=== PATIENT | male | born 1950 | race Caucasian/White ===

== ENCOUNTER 2020-09-24 14:56 | Emergency (ER) | payer MEDICARE, OTHER ==
--- NOTE | 2020-09-24 15:23 | ED Physician Documentation ---
PD HPI ABD PAIN - Stated complaint Stated Complaint: MALE - Chief complaint Chief Complaint: Abd Pain - History obtained from History obtained from: Patient - Additional information Additional information: He had a tough late night last night with a lot of urinary frequency and today could not urinate at all. He does have a history of large prostate with PSAs in the 5-6 range. Not on Flomax currently. Review of Systems Constitutional: denies: Fever, Chills GI: reports: Abdominal Pain. denies: Nausea, Vomiting : reports: Frequency. denies: Dysuria PD PAST MEDICAL HISTORY - Present Medications Home Medications: Ambulatory Orders Medication Instructions Recorded Confirmed Ciprofloxacin HCl [Cipro] 500 mg PO BID #20 tablet 09/24/20 Phenazopyridine HCl [Pyridium] 200 mg PO TID PRN #6 tablet 09/24/20 Rosuvastatin Calcium [Crestor] 40 mg PO DAILY 09/24/20 09/24/20 Tamsulosin [Flomax] 0.4 mg PO DAILY #14 capsule 09/24/20 Venlafaxine HCl [Effexor Xr] 75 mg PO DAILY 09/24/20 09/24/20 amLODIPine [Norvasc] 5 mg PO DAILY 09/24/20 09/24/20 buPROPion [Wellbutrin Sr] 300 mg PO DAILY 09/24/20 09/24/20 - Allergies Allergies/Adverse Reactions: Allergies Allergy/AdvReac Type Severity Reaction Status Date / Time No Known Drug Allergies Allergy Verified 09/24/20 15:02 PD ED PE NORMAL - Vitals Vital signs reviewed: Yes - General General: Alert and oriented X 3, No acute distress - Abdomen Abdomen: Normal bowel sounds, Soft, Non tender - Neuro Neuro: Alert and oriented X 3, Normal speech - Psych Psych: Normal mood, Normal affect Results - Vitals Vitals: Vital Signs - 24 hr 09/24/20 09/24/20 15:02 15:32 Temperature 97.7 C H Heart Rate 84 68 Respiratory 18 18 Rate Blood Pressure 109/73 136/76 H O2 Saturation 100 100 Oxygen O2 Source Room air - Labs Labs: Laboratory Tests 09/24/20 09/24/20 09/24/20 15:22 15:22 15:28 WBC 10.0 RBC 4.62 L Hgb 14.4 Hct 42.3 MCV 91.6 MCH 31.2 H MCHC 34.0 RDW 13.1 Plt Count 210 MPV 8.4 Neut # (Auto) 8.5 H Lymph # (Auto) 0.8 L [place] # (Auto) 0.6 Eos # (Auto) 0.0 Baso # (Auto) 0.0 Absolute Nucleated RBC 0.00 Nucleated RBC % 0.0 Sodium 134 L Potassium 3.8 Chloride 101 Carbon Dioxide 24 Anion Gap 9.0 BUN 24 H Creatinine 1.0 Estimated GFR (MDRD) 75 L Glucose 103 H Calcium 8.8 Total Bilirubin 2.0 H AST 20 ALT 18 Alkaline Phosphatase 74 Total Protein 7.2 Albumin 4.2 Globulin 3.0 Albumin/Globulin Ratio 1.4 Lipase 27 Urine Color DARK YELLOW Urine Clarity CLOUDY Urine pH 6.0 Ur Specific [place] 1.025 Urine Protein 30 H Urine Glucose (UA) NEGATIVE Urine Ketones TRACE Urine Occult Blood MODERATE H Urine Nitrite POSITIVE H Urine Bilirubin NEGATIVE Urine Urobilinogen 1 (NORMAL) Ur Leukocyte Esterase MODERATE H Urine RBC TNTC H Urine WBC >25 H Ur Squamous Epith Cells NONE SEEN Urine Bacteria Many H Ur Microscopic Review INDICATED Urine Culture Comments INDICATED PD MEDICAL DECISION MAKING - ED course ED course: 69-year-old gentleman presents with acute bladder spasms, sensation of retention. He has a history of a large prostate and therefore urinary retention was presumed and a Wolff was expeditiously placed, but the output was not that high, maybe only about 100 mL. Bedside ultrasound at that time showed an empty bladder with the Wolff in place, he does have evidence of a UTI which was probably because of his symptoms in the first place which we are treating with Pyridium and Cipro. He has follow-up scheduled with a urologist and it seems reasonable to put him on Flomax in the meantime as well. Departure - Departure Disposition: 01 Home, Self Care Clinical Impression: Cystitis Condition: Good Record reviewed to determine appropriate education?: Yes Instructions: ED UTI Cystitis Male Prescriptions: Ciprofloxacin HCl [Cipro] 500 mg PO BID #20 tablet Tamsulosin [Flomax] 0.4 mg PO DAILY #14 capsule Phenazopyridine HCl [Pyridium] 200 mg PO TID PRN #6 tablet PRN Reason: dysuria Comments: You were seen today for symptoms that on the face of it could have been from urinary retention, but the Wolff catheter did not drain much and you do have evidence of UTI. We are starting you on antibiotics for this, also the Pyridium which should help with the bladder spasms and Flomax which should help with your prostate. Return as needed. We will culture the urine and if a change is necessary we will call you in a few days for new antibiotics. Follow-up with urologist as scheduled.
[2020-09-24 15:36] LABS: BASOPHILS % (AUTO) 0.2 %; EOSINOPHILS % (AUTO) 0.3 %; HGB - HEMOGLOBIN 14.4 g/dL (14.0-18.0); LYMPHOCYTES # (AUTO) 0.8 10^3/uL (1.5-3.5); LYMPHOCYTES % (AUTO) 8.2 %; MEAN CORPUSCULAR HEMOGLOBIN 31.2 pg (27.0-31.0); MEAN CORPUSCULAR VOLUME 91.6 fL (80.0-94.0); MEAN PLATELET VOLUME 8.4 fL (7.4-11.4); MONOCYTES # (AUTO) 0.6 10^3/uL (0.0-1.0); MONOCYTES % (AUTO) 6.1 %; NEUTROPHILS # (AUTO) 8.5 10^3/uL (1.5-6.6); NEUTROPHILS % (AUTO) 84.9 %; PLT - PLATELET COUNT 210 10^3/uL (130-450); RED BLOOD COUNT 4.62 10^6/uL (4.70-6.10); RED CELL DISTRIBUTION WIDTH 13.1 % (12.0-15.0)
[2020-09-24 15:41] LABS: BILIRUBIN,URINE NEGATIVE (NEGATIVE); GLUCOSE, URINE (UA) NEGATIVE (NEGATIVE); KETONES,URINE (UA) TRACE mg/dL (NEGATIVE); LEUKOCYTE ESTERASE, URINE MODERATE (NEGATIVE); NITRITE,URINE POSITIVE (NEGATIVE); OCCULT BLOOD,URINE MODERATE (NEGATIVE); PROTEIN,URINE 30 mg/dL (NEGATIVE); UROBILINOGEN,URINE 1 (NORMAL) E.U./dL (NORMAL)
[2020-09-24 15:44] LABS: CLARITY,URINE CLOUDY (CLEAR)
[2020-09-24 15:52] LABS: ALBUMIN 4.2 g/dL (3.2-5.5); ALBUMIN/GLOBULIN RATIO 1.4 (1.0-2.2); CALCIUM 8.8 mg/dL (8.5-10.3); TOTAL PROTEIN 7.2 g/dL (6.7-8.2)
[2020-09-24 15:54] LABS: RBC,URINE TNTC /HPF (0-5); SQUAMOUS EPITHELIAL CELL,UR NONE SEEN (<= Few)
[2020-09-24 15:55] LABS: BACTERIA,URINE Many /HPF (None Seen)
[2020-09-24] MEDS ORDERED: CIPROFLOXACIN 250 MG TABLET PO STA (16:02)
[2020-09-24] MEDS ORDERED: PHENAZOPYRIDINE 100 MG TABLET PO STA (16:02)
[2020-09-24 16:10] VITALS: BP 138/73
== END 2020-09-24 16:22 | disposition home or self-care (01) ==
LOC: ED 14:56
DX: N30.90 Cystitis, unspecified without hematuria (principal)
CPT/HCPCS: 36415; 80053; 81001; 83690; 85025; 87077; 87086; 87181; 99283; A9270; 81003

== ENCOUNTER 2021-02-01 12:12 | Outpatient (CLI) | payer MEDICARE, OTHER | END 2021-02-01 12:13 | disposition home or self-care (01) | LOC: DI.N 12:12 | PROVIDERS: ATTEND Family Medicine | DX: Z53.9 Procedure and treatment not carried out, unspecified reason (principal) ==

== ENCOUNTER 2021-02-01 12:22 | Outpatient (CLI) | payer MEDICARE, OTHER ==
--- NOTE | 2021-02-01 16:00 | XRAY Report ---
PROCEDURE: Lumbar Spine 2 View INDICATIONS: CHRONIC LOW BACK PX TECHNIQUE: 2 views of the lumbar spine were acquired. COMPARISON: None. FINDINGS: Bones: 5 [id number] vertebrae are present. There is trace retrolisthesis of L2 on L3, L3 on L4 , L4 on L5 and L5 on S1. Moderate disc space narrowing is present L4-5, L5-S1 as well as severe at L2 -3. Severe foraminal narrowing is noted at L5-S1, mild to moderate throughout the remainder of the rome mbar spine. There is mild wedge appearance of the L4 vertebral body of indeterminate age. No suspicio us bony lesions. Soft tissues: Overlying bowel gas pattern is normal. No suspicious soft tissue calcifications. IMPRESSION: Degenerative changes most notable at L5-S1. As clinically indicated, MRI may be obtained for additional evaluation. Reviewed by: Rubi Cameron MD on 02/01/2021 3:59 PM PDT Approved by: Rubi Cameron MD on 02/01/2021 3:59 PM PDT Station ID: [id number]
== END 2021-02-01 12:23 | disposition home or self-care (01) ==
LOC: DI.N 12:22
PROVIDERS: ATTEND Physician Assistant
DX: M54.5 Low back pain (principal); M47.817 Spondylosis without myelopathy or radiculopathy, lumbosacral region

== ENCOUNTER 2021-02-16 11:38 | Outpatient (CLI) | payer MEDICARE, OTHER ==
--- NOTE | 2021-02-16 12:45 | XRAY Report ---
PROCEDURE: SI Joints INDICATIONS: LOW BACK PAIN TECHNIQUE: 3 views of the sacroiliac joints were acquired. COMPARISON: None. FINDINGS: Bones: No bony erosions or ankylosis. No suspicious bony lesions. No fractures. Soft tissues: Overlying bowel gas pattern is normal. No suspicious soft tissue densities. IMPRESSION: No bony erosion or ankylosis is seen in bilateral sacroiliac joints. No fracture or dislocation. Reviewed by: Acosta Bone MD on 02/16/2021 11:44 AM DILCIA Approved by: Acosta Bone MD on 02/16/2021 11:44 AM DILCIA Station ID: [id number]
--- NOTE | 2021-02-16 13:25 | CT Report ---
PROCEDURE: Low Dose Lung Cancer Screen INDICATIONS: LUNG CA SCREENING, HX OF SMOKING TECHNIQUE: Noncontrast low-dose 5 mm thick sections acquired from the pulmonary apices to the posterior costophr enic angles. 7 mm thick coronal and sagittal MIP reformats were then acquired. For radiation dose r eduction, the following was used: automated exposure control, adjustment of mA and/or kV according t o patient size. COMPARISON: None. FINDINGS: Image quality: Excellent. Lungs and pleura: Moderate to severe centrilobular emphysema. 2 mm pulmonary nodule, right apex, gerardo ge 51/4. Pleural-based pulmonary nodule, anterior lateral right upper lobe, 0.6 x 1.0 cm, image 81/4. 3 mm pleural-based pulmonary nodule, right upper lobe, image 129/4. 3 mm pulmonary nodule, left lowe r lobe, image 134/4. 3 mm pulmonary nodule, left upper lobe, image 148/4. Mediastinum: Heart size is normal. No pericardial effusion. Moderately advanced coronary artery roseline cifications. No mediastinal adenopathy by size criteria. Thoracic aorta and central pulmonary arteri es are normal in size. Esophagus is normal in caliber. No hiatal hernia. Bones and chest wall: No suspicious bony lesions. No vertebral body compression fractures. No axil anum or supraclavicular adenopathy by size criteria. The thyroid is normal in size. Abdomen: Dense aortic calcifications. Visualized upper abdomen solid organs and bowel loops appear n ormal in the absence of contrast. IMPRESSION: 1. LungRads Category 3: Probably benign findings-short term follow up suggested; includes nodules wit h a low likelihood of becoming a clinically significant cancer: 2. 6 month follow-up low-dose noncontrast CT of the chest is recommended for further evaluation. Mult iple pulmonary nodules, the largest of which is a pleural-based pulmonary nodule in the right upper l obe, measuring 0.6 x 1.0 cm. The other nodules are tiny. 3. Clinically significant or potentially cli nically significant findings (nonlung cancer): Moderately severe centrilobular emphysema, moderately advanced coronary artery calcifications, abdominal aortic atherosclerosis. Reviewed by: Ezequiel Suh MD on 02/16/2021 1:24 PM PDT Approved by: Ezequiel Suh MD on 02/16/2021 1:24 PM PDT Station ID: [id number]
== END 2021-02-16 11:39 | disposition home or self-care (01) ==
LOC: DI 11:38
PROVIDERS: ATTEND Family Medicine
DX: Z12.2 Encounter for screening for malignant neoplasm of respiratory organs (principal); J43.2 Centrilobular emphysema; R91.8 Other nonspecific abnormal finding of lung field; M54.5 Low back pain; I25.10 Atherosclerotic heart disease of native coronary artery without angina pectoris; I70.0 Atherosclerosis of aorta; Z87.891 Personal history of nicotine dependence

== ENCOUNTER 2022-03-04 14:19 | Outpatient (CLI) | payer MEDICARE, OTHER ==
--- NOTE | 2022-03-07 08:29 | XRAY Report ---
PROCEDURE: Chest 2 View X-Ray INDICATIONS: Crackles TECHNIQUE: 2 view(s) of the chest. COMPARISON: None. FINDINGS: Surgical changes and devices: None. Lungs and pleura: No pleural effusions or pneumothorax. Lungs are clear. Mediastinum: Mediastinal contours are normal. Heart size is normal. The aorta is tortuous Bones and chest wall: No suspicious bony abnormalities. Soft tissues appear unremarkable. Degenera tive changes of the thoracic spine. IMPRESSION: No acute cardiopulmonary abnormality. Reviewed by: Rajesh Clemons on 03/07/2022 8:27 AM PDT Approved by: Rajesh Clemons on 03/07/2022 8:27 AM PDT Station ID: [id number]
== END 2022-03-04 14:20 | disposition home or self-care (01) ==
LOC: DI 14:19
PROVIDERS: ATTEND Physician Assistant
DX: R09.89 Other specified symptoms and signs involving the circulatory and respiratory systems (principal)

== ENCOUNTER 2022-03-09 13:50 | Outpatient (CLI) | payer MEDICARE, OTHER ==
--- NOTE | 2022-03-09 15:12 | XRAY Report ---
PROCEDURE: Hip w/Pelvis 2-3V RT INDICATIONS: Pain in the right anterior thigh radiating to foot. TECHNIQUE: AP pelvis with lateral view(s) of the right hip(s). COMPARISON: None. FINDINGS: Bones: No fractures or dislocations. Pelvic ring appears intact. No suspicious bony lesions. Mild , symmetrical hip joint degeneration bilaterally. Severe degenerative disc disease at L5-S1. Soft tissues: The visualized bowel gas pattern is normal. Atherosclerotic calcifications are noted. IMPRESSION: 1. Mild degenerative joint disease. 2. Severe degenerative disease at L5-S1. Reviewed by: Klaudia Connelly MD on 03/09/2022 3:11 PM PDT Approved by: Klaudia Connelly MD on 03/09/2022 3:11 PM PDT Station ID: [id number]
== END 2022-03-09 13:51 | disposition home or self-care (01) ==
LOC: DI 13:50
PROVIDERS: ATTEND Physician Assistant
DX: M16.11 Unilateral primary osteoarthritis, right hip (principal); M51.36 Other intervertebral disc degeneration, lumbar region; M48.061 Spinal stenosis, lumbar region without neurogenic claudication

== ENCOUNTER 2022-03-15 15:20 | Outpatient (CLI) | payer MEDICARE, OTHER ==
--- NOTE | 2022-03-15 17:19 | MRI Report ---
PROCEDURE: Lumbar Spine W/O INDICATIONS: HIP AND THIGH PAIN TECHNIQUE: Noncontrast sagittal T1 spin echo and T2 fast echo, sagittal STIR, axial T1 and T2 fast spin echo thr ough the lumbar spine. In cases with scoliosis, additional coronal T2 fast spin echo may be performe d. COMPARISON: X-ray lumbar spine 02/01/2021 FINDINGS: Image quality: Excellent. Alignment and Curvature: There is multilevel retrolisthesis throughout the lumbar spine measuring 3 mm, 4 mm, 6 mm and 6 mm at L2 on L3, L3 on L4, L4-L5 and L5 on S1 respectively. Bone Marrow: Marrow is of normal overall signal. Mild reactive endplate changes are present at L2-3, L3-4, minimal throughout the remainder of the lumbar spine. Small stones are noted along the inferio r endplate of L3. No acute vertebral body compression fractures. Spinal Cord: Conus medullaris terminates at the L2 level. Visualized cord demonstrates normal signa l and size. Paraspinous Soft Tissues: No paravertebral masses. Discs: Moderate to severe multilevel disc desiccation is present. L1-L2: Mild disc bulge without spinal stenosis. Mild bilateral foraminal narrowing with facet and ligamentum flavum hypertrophy. Minimal epidural lipomatosis. L2-L3: Mild disc bulge with mild to moderate spinal stenosis. Moderate left and mild right foramin al narrowing with facet and ligamentum flavum hypertrophy as well as epidural lipomatosis. L3-L4: Mild disc bulge with mild to moderate spinal stenosis. Severe right and [id number] lef t foraminal narrowing with facet and ligamentum flavum hypertrophy. L4-L5: Mild disc bulge with severe spinal stenosis and canal flattening. Moderate left and mild rig ht foraminal narrowing with facet and ligamentum flavum hypertrophy. L5-S1: Mild disc bulge with moderate spinal stenosis. Severe right and moderate left foraminal narr owing with compression of the exiting right L5 nerve roots. Facet and ligamentum flavum hypertrophy a re present. IMPRESSION: Multilevel spinal stenosis most severe at L4-5 secondary to disc bulge with contributing effect of fa cet/ligament of flavum arthropathy. Multilevel foraminal narrowing most severe at L5-S1 demonstrating flattening of the exiting right L5 nerve root secondary to facet arthropathy. Reviewed by: Rubi Cameron MD on 03/15/2022 5:18 PM PDT Approved by: Rubi Cameron MD on 03/15/2022 5:18 PM PDT Station ID: [id number]
== END 2022-03-15 15:21 | disposition home or self-care (01) ==
LOC: DI 15:20
PROVIDERS: ATTEND Physician Assistant
DX: M79.651 Pain in right thigh (principal); M47.26 Other spondylosis with radiculopathy, lumbar region; M47.27 Other spondylosis with radiculopathy, lumbosacral region; M48.061 Spinal stenosis, lumbar region without neurogenic claudication; M48.07 Spinal stenosis, lumbosacral region